=== PATIENT | female | born 1945 ===

== ENCOUNTER 2016-10-03 17:24 | Inpatient (IN) | payer MEDICARE, OTHER ==
--- NOTE | 2016-10-03 17:40 | CP.PCM.PN ---
Subjective - Date & Time of Evaluation Date of Evaluation: 10/03/16 Time of Evaluation: 17:38 - Subjective Subjective: CODE HEART: Patient presents to ED via EMS from her doctor, Dr. Green's office. 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 Patient did not take any medication for the pain. Patient went to her doctor today who did an EKG and called EMS. EMS EKG showed ST elevations in II, III, and AVF. Pt given aspirin and nitro in the field. Patient with PMHx HTN but not on meds. PSHx only positive for tonsillectomy. Patient given heparin, billinta in the ED. HR 104, 145/ 80, O2 sat 100%. Objective - Vital Signs/Intake and Output Vital Signs (last 24 hours): Temp Pulse Resp BP Pulse Ox 97.8 F 97 H 16 120/60 96 10/03/16 17:33 10/03/16 17:33 10/03/16 17:33 10/03/16 17:33 10/03/16 17:33
[2016-10-03] MEDS ORDERED: Phenylephrine 10 mg/ml Inj ONE (17:41)
[2016-10-03] MEDS ORDERED: Sodium Chloride 0.9% 500 ML IV ONE (17:41)
[2016-10-03] MEDS ORDERED: Iodixanol 320 MG/ML 200 ML BOTTLE IV ONE (17:42)
[2016-10-03 17:45] LABS: BASO # 0.1 K/uL (0.0-0.2); BASO % 0.4 % (0.0-2.0); EOS # 0.1 K/uL (0.0-0.7); EOS % 0.3 % (0.0-4.0); HEMATOCRIT 41.2 % (34.0-47.0); LYMPH # 2.3 K/uL (1.0-4.3); LYMPH % 14.5 % (20.0-40.0); MEAN CELL VOLUME 89.2 fL (81.0-99.0); MEAN CORPUSCULAR HEMOGLOBIN 29.8 pg (27.0-31.0); MEAN CORPUSCULAR HGB CONC 33.4 g/dL (33.0-37.0); MEAN PLATELET VOLUME 8.6 fL (7.2-11.7); MONO # 0.8 K/uL (0.0-0.8); MONO % 4.8 % (0.0-10.0); WHITE BLOOD COUNT 15.6 K/uL (4.8-10.8)
[2016-10-03] MEDS ORDERED: Heparin25000 units/250ml 1/2NS 25,000 UNITS/250 ML BAG IV STA (17:45)
--- NOTE | 2016-10-03 17:48 | C.PDOC ---
History Of Present Illness 71 yr old female brought in via BLS from the doctors office, presents to the ER with complaints of chest pain. Patient states she had chest tightness intermittently for the past 2 days. Patient is awake and alert, EMS report patient was given 2 Nitro and Aspirin in field. Reports of headache. Denies fever, nausea, vomiting, weakness or numbness. 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 Constitutional: Negative for: Fever Cardiovascular: Positive for: Chest Pain Gastrointestinal: Negative for: Nausea, Vomiting Neurological: Negative for: Weakness, Numbness Physical Exam - Physical Exam Appears: Non-toxic, No Acute Distress Skin: Warm, Dry, No Rash Head: Atraumatic, Normacephalic Neck: Supple Chest: Symmetrical, No Tenderness Cardiovascular: Rhythm Regular, No Murmur Respiratory: Normal Breath Sounds, No Rales, No Rhonchi, No Wheezing Gastrointestinal/Abdominal: Soft, No Tenderness Extremity: Normal ROM, Pedal Edema (trace) Neurological/Psych: Oriented x3, Normal Speech, Normal Cognition ED Course And Treatment - Laboratory Results Result Diagrams: 10/03/16 17:39 10/03/16 17:39 ECG: Interpreted By Me ECG Rhythm: Sinus Rhythm ECG Interpretation: Abnormal Interpretation Of ECG: Sinus ST elevation 2,3,f, Rate From EC O2 Sat by Pulse Oximetry: 100 Pulse Ox Interpretation: Normal Medical Decision Making Medical Decision Making: PLAN: * Code heart * EKG * CBC * CMP * already got asa * Brilinta PO * Heparin IV * pathology lab technician NOTE: * 17:18 - EKG came through [facility]. * 17:25 - Code Heart was called. * 17:26 - Patient arrived to ED. 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 Disposition - Disposition Disposition: HOME/ ROUTINE Disposition Time: 17:30 Condition: CRITICAL - Clinical Impression Clinical Impression: STEMI (ST elevation myocardial infarction) - Scribe Statement The provider has reviewed the documentation as recorded by the Alejandro Schmidt Provider Attestation: All medical record entries made by the Alejandro were at my direction and personally dictated by me. I have reviewed the chart and agree that the record accurately reflects my personal performance of the history, physical exam, medical decision making, and the department course for this patient. I have also personally directed, reviewed, and agree with the discharge instructions and disposition.
[2016-10-03 17:53] LABS: CHLORIDE 102 mmol/L (98-107); POTASSIUM 3.9 mmol/L (3.6-5.2); SODIUM 136 mmol/L (132-148)
[2016-10-03 17:55] LABS: BILIRUBIN,TOTAL 0.6 mg/dL (0.2-1.3); CARBON DIOXIDE 23 mmol/L (22-30); CHOLESTEROL 291 mg/dL (0-199); GFR AFRICAN-AMERICAN > 60; TOTAL PROTEIN 7.3 g/dL (6.3-8.3)
[2016-10-03 17:56] LABS: ALB/GLOB RATIO 1.3 (1.0-2.1); ALKALINE PHOSPHATASE 96 U/L (38-126); ALT/SGPT 22 U/L (9-52); AST/SGOT 31 U/L (14-36); BLOOD UREA NITROGEN 12 mg/dL (7-17); CALCIUM 9.3 mg/dl (8.6-10.4); GLUCOSE,RANDOM 132 mg/dL (65-105); INR 0.9
[2016-10-03] MEDS ORDERED: Midazolam 2 MG/2 ML VIAL ONE (18:00)
--- NOTE | 2016-10-03 18:50 | CP.PCM.CON ---
History of Present Illness - History of Present Illness History of Present Illness: I was asked for consultation by galindo Martinez. Patient is a 71 year old female with PMH HTN, DM who presents with chest pain. The patient states she has develoepd progressive chest pressure and dyspnea. She went to her primary medical doctor's office and was found to have anabnormal KEG. She was brought in by ambulance with an inferior eall myocardial infarction. The patient has persistent chest pain. Review of Systems - Constitutional Constitutional: absent: As Per HPI, Anorexia, Chills, Daytime Sleepiness, Excessive Sweating, Fatigue, Fever, Frequent Falls, Headache, Increased Appetite , Lethargy, Malaise, Night Sweats, Snoring, Sleep Apnea, Weight Gain, Weight Loss, Weakness, Other - EENT Eyes: absent: As Per HPI, Blind Spots, Blurred Vision, Change in Vision, Decreased Night Vision, Diplopia, Discharge, Dry Eye, Exophthalmos, Floaters, Irritation, Itchy Eyes, Loss of Peripheral Vision, Pain, Photophobia, Requires Corrective Lenses, Sees Flashes, Spots in Vision, Tunnel Vision, Other Visual Disturbances, Loss of Vision, Other Ears: absent: As Per HPI, Decreased Hearing, Ear Discharge, Ear Pain, Tinnitus, Abnormal Hearing, Disequilibrium, Dizziness, Other Nose/Mouth/Throat: absent: As Per HPI, Epistaxis, Nasal Congestion, Nasal Discharge, Nasal Obstruction, Nasal Trauma, Nose Pain, Post Nasal Drip, Sinus Pain, Sinus Pressure, Bleeding Gums, Change in Voice, Dental Pain, Dry Mouth, Dysphagia, Halitosis, Hoarsness, Lip Swelling, Mouth Lesions, Mouth Pain, Odynophagia, Sore Throat, Throat Swelling, Tongue Swelling, Facial Pain, Neck Pain, Neck Mass, Other - Cardiovascular Cardiovascular: Chest Pain at Rest, Dyspnea - Respiratory Respiratory: Dyspnea - Gastrointestinal Gastrointestinal: absent: As Per HPI, Abdominal Pain, Belching, Bloating, Change in Bowel Habits, Change in Stool Character, Coffee Ground Emesis, Constipation, Cramping, Diarrhea, Dyspepsia, Dysphagia, Early Satiety, Excessive Flatus, Fecal Incontinence, Heartburn, Hematemesis, Hematochezia, Loose Stools, Melena, Nausea, Odynophagia, Temesmus, Vomiting, Other - Genitourinary Genitourinary: absent: As Per HPI, Change in Urinary Stream, Difficulty Urinating, Dysuria, Flank Pain, Hematuria, Pyuria, Nocturia, Urinary Incontinence, Urinary Frequency, Urinary Hesitance, Urinary Urgency, Voiding Freq/Small Amts, Freq UTI, Hx Renal/Bladder Calculi, Hx /Renal Surgery, Bladder Distension, Other - Musculoskeletal Musculoskeletal: absent: As Per HPI, Abnormal Gait, Arthralgias, Atrophy, Back Pain, Deformity, Joint Swelling, Limited Range of Motion, Loss of Height, Muscle Cramps, Muscle Weakness, Myalgias, Neck Pain, Numbness, Radiating Pain into Limb, Stiffness, Tingling, Other - Integumentary Integumentary: absent: As Per HPI, Acne, Alopecia, Bleeding Lesions, Change in Hair, Change in Nails, Change in Pigmentation, Changing Lesions, Dry Skin, Erythema, Furuncle, Hirsutism, Lesions, New Lesions, Non-Healing Lesions, Photosensitivity, Pruritus, Rash, Skin Pain, Skin Ulcer, Sores, Striae, Swelling , Unusual Bruising, Wounds, Jaundice, Other - Neurological Neurological: absent: As Per HPI, Abnormal Gait, Abnormal Hearing, Abnormal Movements, Abnormal Speech, Behavioral Changes, Burning Sensations, Confusion, Convulsions, Disequilibrium, Dizziness, Numbness, Focal Weakness, Frequent Falls , Headaches, Lack of Coordination, Loss of Vision, Memory Loss, Paresthesias, Radicular Pain, Restless Legs, Sensory Deficit, Syncope, Tingling, Tremor, Vertigo, Weakness, Other Visual Disturbances, Other - Psychiatric Psychiatric: absent: As Per HPI, Abnormal Sleep Pattern, Anhedonia, Anxiety, Auditory Hallucinations, Behavioral Changes, Change in Appetite, Change in Libido, Confusion, Depression, Difficulty Concentrating, Hallucinations, Homicidal Ideation, Hopelessness, Irritability, Memory Loss, Mood Swings, Panic Attacks, Paranoia, Suicidal Ideation, Visual Hallucinations, Tactile Hallucinations, Other - Endocrine Endocrine: absent: As Per HPI, Change in Body Appearance, Change in Libido, Cold Intolorance, Deepening of Voice, Excessive Sweating, Fatigue, Flushing, Heat Intolorance, Increase in Ring/Shoe/Hat Size, Palpitations, Polydipsia, Polyphagia, Polyuria, Other - Hematologic/Lymphatic Hematologic: absent: As Per HPI, Easy Bleeding, Easy Bruising, Lymphadenopathy, Other Past Patient History - Past Social History Smoking Status: Never Smoked - CARDIAC Hx Hypertension: Yes - PSYCHIATRIC Hx Substance Use: No - SURGICAL HISTORY Hx Tonsillectomy: Yes - ANESTHESIA Hx Anesthesia: No Hx Anesthesia Reactions: No Meds Allergies/Adverse Reactions: Allergies Allergy/AdvReac Type Severity Reaction Status Date / Time No Known Allergies Allergy Unverified 10/03/16 17:33 - Medications Medications: Current Medications Heparin Sodium/Sodium Chloride (Heparin 76129 Units/250ml 1/2 Normal Saline) 25 ,000 units in 250 mls @ 10 mls/hr IV STAT STA Stop: 10/04/16 18:44 Physical Exam - Constitutional Appears: Toxic - Head Exam Head Exam: NORMAL INSPECTION - Eye Exam Eye Exam: Normal appearance - ENT Exam ENT Exam: Mucous Membranes Moist - Neck Exam Neck exam: Positive for: Full Rom - Respiratory Exam Respiratory Exam: Decreased Breath Sounds - Cardiovascular Exam Cardiovascular Exam: REGULAR RHYTHM - GI/Abdominal Exam GI & Abdominal Exam: Normal Bowel Sounds - Rectal Exam Rectal Exam: Deferred - Extremities Exam Extremities exam: Positive for: pedal edema - Back Exam Back exam: NORMAL INSPECTION - Neurological Exam Neurological exam: Alert, Oriented x3 - Psychiatric Exam Psychiatric exam: Normal Affect - Skin Skin Exam: Normal Color Results - Vital Signs Recent Vital Signs: Last Vital Signs Temp 97.8 F 10/03/16 17:33 Pulse 74 10/03/16 17:42 Resp 16 10/03/16 17:35 BP 100/55 L 10/03/16 17:42 Pulse Ox 100 10/03/16 18:13 - Labs Result Diagrams: 10/04/16 06:26 10/04/16 06:24 - EKG Data EKG Interpreted by: Myself EKG shows normal: Sinus rhythm - EKG Data Interpretation: Acute Ischemia Assessment & Plan (1) STEMI (ST elevation myocardial infarction) Assessment and Plan: constantino has been loaded with Briinta, asa, heparin. patient requires immediate cardiac catheterization. the risks an benefits have been explained in detail. Status: Acute (2) HTN (hypertension) Assessment and Plan: blood pressure control Status: Acute (3) Hypercholesterolemia Assessment and Plan: check lipid profile Status: Acute (4) Non-insulin dependent type 2 diabetes mellitus Assessment and Plan: glucose control Status: Acute
--- NOTE | 2016-10-03 18:54 | CP.PCM.PN ---
Subjective - Date & Time of Evaluation Date of Evaluation: 10/03/16 Time of Evaluation: 18:50 - Subjective Subjective: cardiac cath performed for acute IWMI. RCA 99% mid (BARRIE 1 flow) culprit vessel Xience 2.75 x 18 and 2.75 x 12 ANDERSON mid RCA LVEF 50%. Plan: admit to ICU. ASA 81 mg daily, Brilinta 90 mg BID. stain therapy. echocardiogram in am Objective - Vital Signs/Intake and Output Vital Signs (last 24 hours): Temp Pulse Resp BP Pulse Ox 97.8 F 74 16 100/55 L 100 10/03/16 17:33 10/03/16 17:42 10/03/16 17:35 10/03/16 17:42 10/03/16 18:13 - Medications Medications: Current Medications Heparin Sodium/Sodium Chloride (Heparin 55258 Units/250ml 1/2 Normal Saline) 25 ,000 units in 250 mls @ 10 mls/hr IV STAT STA Stop: 10/04/16 18:44 - Labs Labs: PT 10.5 SECONDS (9.7-12.2) 10/03/16 17:39 INR 0.9 10/03/16 17:39 APTT 40 SECONDS (21-34) H 10/03/16 17:39
[2016-10-03] MEDS ORDERED: Sodium Chloride 0.9% 1,000 ML IV SCH (19:00)
[2016-10-03 19:58] LABS: CHLORIDE 102 mmol/L (98-107)
[2016-10-03 19:59] LABS: POTASSIUM 4.5 mmol/L (3.6-5.2); SODIUM 136 mmol/L (132-148)
[2016-10-03 20:01] LABS: ALB/GLOB RATIO 1.3 (1.0-2.1); AST/SGOT 101 U/L (14-36); BILIRUBIN,TOTAL 0.6 mg/dL (0.2-1.3); BLOOD UREA NITROGEN 11 mg/dL (7-17); CARBON DIOXIDE 25 mmol/L (22-30); GFR AFRICAN-AMERICAN > 60; TOTAL PROTEIN 6.7 g/dL (6.3-8.3)
[2016-10-03 20:02] LABS: ALKALINE PHOSPHATASE 97 U/L (38-126); ALT/SGPT 33 U/L (9-52); CALCIUM 8.9 mg/dl (8.6-10.4); GLUCOSE,RANDOM 115 mg/dL (65-105)
--- NOTE | 2016-10-03 20:58 | CP.PCM.CON ---
History of Present Illness - History of Present Illness History of Present Illness: 71 F with h/o htn, not currently on meds, h/o tobacco use about 5-6 cig/day was sent from pmd's for c/o intermittent chest pressure for last 1 wk with ekg showing inferior STEMI. Pressure had been related with her physical activities. Patient came in ER as code heart, cath done by Dr. Villalpando 2 stents in mid RCA , EF 50% and sent in post cath for monitor in ICU. Patient currently denies any symptoms, or distress, is pleasant and maintaining vitals. PMH as above PSH tonsillectomy Allergies NKDA Meds none currently Family history mother still living, father at age of 82 Social lives with mother and takes care of her, smoking as above, denies alcohol or illicit drugs. Review of Systems - Review of Systems All systems: reviewed and no additional remarkable complaints except (HPI) Past Patient History - Past Social History Smoking Status: Light Smoker < 10 Cigarettes Daily Alcohol: None Drugs: Denies Home Situation {Lives}: With Family Domestic Violence: Negative - CARDIAC Hx Hypertension: Yes - PSYCHIATRIC Hx Substance Use: No - SURGICAL HISTORY Hx Tonsillectomy: Yes - ANESTHESIA Hx Anesthesia: No Hx Anesthesia Reactions: No Meds Allergies/Adverse Reactions: Allergies Allergy/AdvReac Type Severity Reaction Status Date / Time No Known Allergies Allergy Unverified 10/03/16 17:33 - Medications Medications: Current Medications Aspirin (Aspirin Chewable) 81 mg PO DAILY [facility] Sodium Chloride (Sodium Chloride 0.9%) 1,000 mls @ 100 mls/hr IV .Q10H ADRIANA Stop: 10/03/16 23:59 Last Admin: 10/03/16 20:01 Dose: 100 mls/hr Pantoprazole Sodium (Protonix Ec Tab) 40 mg PO DAILY ADRIANA Rosuvastatin Calcium (Crestor) 10 mg PO HS ADRIANA Ticagrelor (Brilinta) 90 mg PO BID ADRIANA Physical Exam - Additional Findings Additional findings: * HEENT KATHIE * Neck Supple * Chest Clear * CVS regular, no murmur, gallop or rub * PA soft, nt, bs present, cath site in right groin no ecchymosis, no swelling, no tenderness, * Ext no edema, b/l pedal pulses present * 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 no fnd * Skin normal turgor Results - Vital Signs Recent Vital Signs: Last Vital Signs Temp 97.8 F 10/03/16 19:10 Pulse 80 10/03/16 19:27 Resp 15 10/03/16 19:27 BP 148/84 10/03/16 19:27 Pulse Ox 100 10/03/16 18:13 - Labs Result Diagrams: 10/03/16 17:39 10/03/16 19:46 Labs: Laboratory Results - last 24 hr 10/03/16 19:46 Sodium 136 Potassium 4.5 Chloride 102 Carbon Dioxide 25 Anion Gap 13 BUN 11 Creatinine 0.7 Est GFR ( Amer) > 60 Est GFR (Non-Af Amer) > 60 Random Glucose 115 H Calcium 8.9 Total Bilirubin 0.6 AST 101 H D ALT 33 Alkaline Phosphatase 97 Troponin I 20.2000 H* Total Protein 6.7 Albumin 3.7 Globulin 2.9 Albumin/Globulin Ratio 1.3 Assessment & Plan - Assessment and Plan (Free Text) Assessment: * Inferior STEMI, s/p 2 stents in RCA * H/o HTN * Tobacco abuse Plan: * Monitor in Icu * Cardioprotective meds started on brillinta, asa, statin, betablocker as tolerated by vitals * Echo * Spoke to Dr. Susanna Han will admit under his service * See orders for detail.
[2016-10-03] MEDS ORDERED: Influenza Virus Vaccine 45 mcg/0.5 ml Syr IM ONE (21:52)
[2016-10-03] MEDS ORDERED: Pneumococcal 23-Valent Vaccine IM ONE (21:52)
[2016-10-04 06:40] LABS: BASO % 0.2 % (0.0-2.0); EOS % 0.3 % (0.0-4.0); HEMATOCRIT 36.3 % (34.0-47.0); LYMPH # 1.7 K/uL (1.0-4.3); LYMPH % 17.2 % (20.0-40.0); MEAN CELL VOLUME 89.2 fL (81.0-99.0); MEAN CORPUSCULAR HEMOGLOBIN 30.2 pg (27.0-31.0); MEAN CORPUSCULAR HGB CONC 33.8 g/dL (33.0-37.0); MEAN PLATELET VOLUME 8.6 fL (7.2-11.7); MONO # 0.7 K/uL (0.0-0.8); MONO % 7.1 % (0.0-10.0); RED CELL DISTRIBUTION WIDTH 14.2 % (11.5-14.5); WHITE BLOOD COUNT 10.1 K/uL (4.8-10.8)
[2016-10-04 06:43] LABS: CHLORIDE 104 mmol/L (98-107); POTASSIUM 3.7 mmol/L (3.6-5.2); SODIUM 135 mmol/L (132-148)
[2016-10-04 06:45] LABS: ALB/GLOB RATIO 1.1 (1.0-2.1); AST/SGOT 219 U/L (14-36); BILIRUBIN,TOTAL 0.6 mg/dL (0.2-1.3); BLOOD UREA NITROGEN 9 mg/dL (7-17); CARBON DIOXIDE 22 mmol/L (22-30); CHOLESTEROL 221 mg/dL (0-199); GFR AFRICAN-AMERICAN > 60; TOTAL PROTEIN 6.1 g/dL (6.3-8.3)
[2016-10-04 06:46] LABS: ALKALINE PHOSPHATASE 81 U/L (38-126); ALT/SGPT 48 U/L (9-52); CALCIUM 8.3 mg/dl (8.6-10.4); GLUCOSE,RANDOM 117 mg/dL (65-105); MAGNESIUM 1.8 mg/dL (1.6-2.3); PHOSPHOROUS 3.5 mg/dL (2.5-4.5)
[2016-10-04] MEDS: Pantoprazole 40 mg EC Tab PO SCH (09:49)
[2016-10-04] MEDS: Metoprolol Succinate 25 mg XL Tab PO SCH (09:50)
--- NOTE | 2016-10-04 13:13 | CP.PCM.PN ---
Subjective - Date & Time of Evaluation Date of Evaluation: 10/04/16 Time of Evaluation: 09:00 - Subjective Subjective: Patient seen and examined in the intensive care unit. Case discussed with STAFF in the morning rounds. Inferior ST elevation AR status post stents placement in RCA Denies chest pain, denies cough, denies fever or chills Objective - Vital Signs/Intake and Output Vital Signs (last 24 hours): Temp Pulse Resp BP Pulse Ox 97.9 F 86 22 143/66 98 10/04/16 08:00 10/04/16 11:00 10/04/16 11:00 10/04/16 11:00 10/04/16 11:00 Intake and Output: 10/04/16 10/04/16 06:59 18:59 Intake Total 1670 700 Output Total 700 400 Balance 970 300 - Medications Medications: Current Medications Aspirin (Aspirin Chewable) 81 mg PO DAILY [facility] Last Admin: 10/04/16 09:49 Dose: 81 mg Metoprolol Succinate (Toprol Xl) 25 mg PO DAILY [facility] Last Admin: 10/04/16 09:50 Dose: 25 mg Pantoprazole Sodium (Protonix Ec Tab) 40 mg PO DAILY [facility] Last Admin: 10/04/16 09:49 Dose: 40 mg Pneumococcal Polyvalent Vaccine (Pneumovax 23 Vaccine) 0.5 ml IM .ONCE ONE Stop: 10/05/16 10:01 Rosuvastatin Calcium (Crestor) [address] [facility] Ticagrelor (Brilinta) 90 mg PO BID [facility] Last Admin: 10/04/16 09:49 Dose: 90 mg - Labs Labs: 10/04/16 06:26 10/04/16 06:24 PT 10.5 SECONDS (9.7-12.2) 10/03/16 17:39 INR 0.9 10/03/16 17:39 APTT 40 SECONDS (21-34) H 10/03/16 17:39 - Head Exam Head Exam: ATRAUMATIC, NORMOCEPHALIC - Eye Exam Eye Exam: Normal appearance - ENT Exam ENT Exam: Mucous Membranes Moist - Neck Exam Neck Exam: Full ROM, Normal Inspection - Respiratory Exam Respiratory Exam: Clear to Ausculation Bilateral - Cardiovascular Exam Cardiovascular Exam: REGULAR RHYTHM - GI/Abdominal Exam GI & Abdominal Exam: Soft, Normal Bowel Sounds - Extremities Exam Extremities Exam: Normal Inspection - Neurological Exam Neurological Exam: Alert Assessment and Plan (1) STEMI (ST elevation myocardial infarction) Assessment & Plan: Status post stent placement in RCA Continue brilinta, aspirin and started on beta blockers Echocardiogram Transfer patient to telemetry Case discussed with cardiology Status: Acute (2) HTN (hypertension) Status: Acute
--- NOTE | 2016-10-04 18:24 | CP.PCM.PN ---
Subjective - Date & Time of Evaluation Date of Evaluation: 10/04/16 Time of Evaluation: 09:00 - Subjective Subjective: Pt seen and examined in ICU s/p cardiac cath performed for acute IWMI. RCA 99% mid (BARRIE 1 flow) culprit vessel Xience 2.75 x 18 and 2.75 x 12 ANDERSON mid RCA LVEF 50%. ASA 81 mg daily, Brilinta 90 mg BID. stain therapy. echocardiogram pending Objective - Vital Signs/Intake and Output Vital Signs (last 24 hours): Temp Pulse Resp BP Pulse Ox 98.3 F 89 24 148/57 L 100 10/04/16 16:00 10/04/16 16:08 10/04/16 16:08 10/04/16 16:08 10/04/16 16:08 Intake and Output: 10/04/16 10/04/16 06:59 18:59 Intake Total 1670 1180 Output Total 700 1300 Balance 970 -120 - Medications Medications: Current Medications Aspirin (Aspirin Chewable) 81 mg PO DAILY [facility] Last Admin: 10/04/16 09:49 Dose: 81 mg Metoprolol Succinate (Toprol Xl) 25 mg PO DAILY [facility] Last Admin: 10/04/16 09:50 Dose: 25 mg Pantoprazole Sodium (Protonix Ec Tab) 40 mg PO DAILY [facility] Last Admin: 10/04/16 09:49 Dose: 40 mg Pneumococcal Polyvalent Vaccine (Pneumovax 23 Vaccine) 0.5 ml IM .ONCE ONE Stop: 10/05/16 10:01 Rosuvastatin Calcium (Crestor) 10 mg PO [facility] Ticagrelor (Brilinta) 90 mg PO BID [facility] Last Admin: 10/04/16 18:16 Dose: 90 mg - Labs Labs: 10/04/16 06:26 10/04/16 06:24 PT 10.5 SECONDS (9.7-12.2) 10/03/16 17:39 INR 0.9 10/03/16 17:39 APTT 40 SECONDS (21-34) H 10/03/16 17:39 - Constitutional Appears: No Acute Distress - Head Exam Head Exam: ATRAUMATIC, NORMAL INSPECTION, NORMOCEPHALIC - Eye Exam Eye Exam: EOMI, Normal appearance, PERRL Pupil Exam: NORMAL ACCOMODATION, PERRL - Respiratory Exam Respiratory Exam: Clear to Ausculation Bilateral, NORMAL BREATHING PATTERN - Cardiovascular Exam Cardiovascular Exam: REGULAR RHYTHM, +S1, +S2. absent: Murmur - GI/Abdominal Exam GI & Abdominal Exam: Soft, Normal Bowel Sounds. absent: Tenderness Assessment and Plan (1) HTN (hypertension) Status: Acute (2) Hypercholesterolemia Status: Acute (3) Non-insulin dependent type 2 diabetes mellitus Status: Acute (4) STEMI (ST elevation myocardial infarction) Assessment & Plan: s/p cardiac cath ICU monitoring Status: Acute
--- NOTE | 2016-10-04 18:24 | CP.PCM.HP ---
History of Present Illness - History of Present Illness History of Present Illness: Patient is a 71 year old female with PMH HTN, DM who presents with chest pain. The patient states she has develoepd progressive chest pressure and dyspnea. She went to her primary medical doctor's office and was found to have anabnormal KEG. She was brought in by ambulance with an inferior eall myocardial infarction. The patient has persistent chest pain. Present on Admission - Present on Admission Any Indicators Present on Admission: Yes Review of Systems - Review of Systems Systems not reviewed;Unavailable: Acuity of Condition - Constitutional Constitutional: Fatigue, Lethargy, Malaise - EENT Eyes: absent: As Per HPI, Blind Spots, Blurred Vision, Change in Vision, Decreased Night Vision, Diplopia, Discharge, Dry Eye, Exophthalmos, Floaters, Irritation, Itchy Eyes, Loss of Peripheral Vision, Pain, Photophobia, Requires Corrective Lenses, Sees Flashes, Spots in Vision, Tunnel Vision, Other Visual Disturbances, Loss of Vision, Other - Cardiovascular Cardiovascular: Chest Pain, Diaphoresis, Dyspnea - Respiratory Respiratory: absent: As Per HPI, Cough, Dyspnea, Hemoptysis, Dyspnea on Exertion , Wheezing, Snoring, Stridor, Pain on Inspiration, Chest Congestion, Excessive Mucous Production, Change in Mucous Color, Pain with Coughing, Other - Musculoskeletal Musculoskeletal: absent: As Per HPI, Abnormal Gait, Arthralgias, Atrophy, Back Pain, Deformity, Joint Swelling, Limited Range of Motion, Loss of Height, Muscle Cramps, Muscle Weakness, Myalgias, Neck Pain, Numbness, Radiating Pain into Limb, Stiffness, Tingling, Other - Integumentary Integumentary: absent: As Per HPI, Acne, Alopecia, Bleeding Lesions, Change in Hair, Change in Nails, Change in Pigmentation, Changing Lesions, Dry Skin, Erythema, Furuncle, Hirsutism, Lesions, New Lesions, Non-Healing Lesions, Photosensitivity, Pruritus, Rash, Skin Pain, Skin Ulcer, Sores, Striae, Swelling , Unusual Bruising, Wounds, Jaundice, Other Past Patient History - Past Social History Smoking Status: Never Smoked - CARDIAC Hx Hypertension: Yes - MUSCULOSKELETAL/RHEUMATOLOGICAL Hx Falls: Yes - PSYCHIATRIC Hx Substance Use: No - SURGICAL HISTORY Hx Tonsillectomy: Yes - ANESTHESIA Hx Anesthesia: No Hx Anesthesia Reactions: No Meds Home Medications: Home Medication List Medication Instructions Recorded Confirmed Type Aspirin [Adult Low Dose Aspirin EC] 81 mg PO QID #100 tablet. 10/05/16 Rx Metoprolol Succinate [Toprol XL] 25 mg PO DAILY #90 tab 10/05/16 Rx Rosuvastatin Calcium [Crestor] 10 mg PO HS #30 tab 10/05/16 Rx Ticagrelor [Brilinta] 90 mg PO BID #60 tab 10/05/16 Rx Allergies/Adverse Reactions: Allergies Allergy/AdvReac Type Severity Reaction Status Date / Time No Known Allergies Allergy Unverified 10/03/16 17:33 Physical Exam - Constitutional Appears: No Acute Distress - Eye Exam Eye Exam: EOMI, Normal appearance, PERRL Pupil Exam: NORMAL ACCOMODATION, PERRL - Respiratory Exam Respiratory Exam: Clear to Auscultation Bilateral, NORMAL BREATHING PATTERN - Cardiovascular Exam Cardiovascular Exam: REGULAR RHYTHM - GI/Abdominal Exam GI & Abdominal Exam: Normal Bowel Sounds, Soft. absent: Tenderness Results - Vital Signs Recent Vital Signs: Last Vital Signs Temp 98.3 F 10/04/16 16:00 Pulse 89 10/04/16 16:08 Resp 24 10/04/16 16:08 BP 148/57 L 10/04/16 16:08 Pulse Ox 100 10/04/16 16:08 - Labs Result Diagrams: 10/05/16 07:06 10/05/16 07:06 Labs: Laboratory Results - last 24 hr 10/03/16 10/04/16 10/04/16 19:46 06:24 06:26 WBC 10.1 RBC 4.06 Hgb 12.3 Hct 36.3 MCV 89.2 MCH 30.2 MCHC 33.8 RDW 14.2 Plt Count 242 MPV 8.6 Neut % (Auto) 75.2 H Lymph % (Auto) 17.2 L [place] % (Auto) 7.1 Eos % (Auto) 0.3 Baso % (Auto) 0.2 Neut # 7.6 H Lymph # 1.7 Leon # 0.7 Eos # 0.0 Baso # 0.0 Sodium 136 135 Potassium 4.5 3.7 Chloride 102 104 Carbon Dioxide 25 22 Anion Gap 13 12 BUN 11 9 Creatinine 0.7 0.6 L Est GFR ( Amer) > 60 > 60 Est GFR (Non-Af Amer) > 60 > 60 Random Glucose 115 H 117 H Calcium 8.9 8.3 L Phosphorus 3.5 Magnesium 1.8 Total Bilirubin 0.6 0.6 AST 101 H D 219 H D ALT 33 48 Alkaline Phosphatase 97 81 Total Creatine Kinase 1179 H CK-MB (Mass) 91.0 H Troponin I 20.2000 H* Troponin I, Quant 56.6000 H* Total Protein 6.7 6.1 L Albumin 3.7 3.2 L Globulin 2.9 2.9 Albumin/Globulin Ratio 1.3 1.1 Triglycerides 98 D Cholesterol 221 H LDL Cholesterol Direct 182 H HDL Cholesterol 37 Assessment & Plan (1) HTN (hypertension) Status: Acute (2) Hypercholesterolemia Status: Acute (3) Non-insulin dependent type 2 diabetes mellitus Status: Acute (4) STEMI (ST elevation myocardial infarction) Status: Acute
--- NOTE | 2016-10-04 20:02 | CARD ---
APPROVED REPORT EXAM: Two-dimensional and M-mode echocardiogram with Doppler and color Doppler. Other Information Quality : GoodRhythm : NSR INDICATION STEMI, IWMI RISK FACTORS Hypertension Hyperlipidemia Diabetes M-Mode DIMENSIONS RVDd1.32 (2.1-3.2cm)Left Atrium (MM)3.36 (2.5-4.0cm) IVSd1.25 (0.7-1.1cm)Aortic Root2.47 (2.2-3.7cm) LVDd4.30 (4.0-5.6cm)Aortic Cusp Exc.1.59 (1.5-2.0cm) PWd1.21 (0.7-1.1cm)FS (%) 25 % LVDs3.23 (2.0-3.8cm)LVEF (%)50 (>50%) Aortic Valve AoV Peak Gndotzwf936.4cm/Trey Peak GR.8mmHg Mitral Valve MV E Wnqcodcy86.3cm/sMV A Jickapla976.0cm/sE/A ratio0.9 TDI E/Lateral E'0.0E/Medial E'0.0 Tricuspid Valve TR Peak Nhnuvdum310vm/sTR Peak Gr.[id number] LEFT VENTRICLE The left ventricle is normal size. There is mild concentric left ventricular hypertrophy. Left ventricle is borderline. Septal hypokinesis Transmitral Doppler flow pattern is Grade I-abnormal relaxation pattern. RIGHT VENTRICLE The right ventricle is normal size. There is normal right ventricular wall thickness. RV Systolic function is mildly reduced. ATRIA The left atrium size is normal. The right atrium size is normal. AORTIC VALVE The aortic valve is not well visualized. MITRAL VALVE The mitral valve is moderately thickened, a vegitation can be ruled out, clinical correlation is suggested TRICUSPID VALVE The tricuspid valve is normal in structure. GREAT VESSELS The aortic root is normal in size. The IVC is normal in size and collapses >50% with inspiration. PERICARDIAL EFFUSION There is a trace loculated anterior pericardial effusion. <Conclusion> The left ventricle is normal size. There is mild concentric left ventricular hypertrophy. Left ventricle is borderline. Septal hypokinesis Transmitral Doppler flow pattern is Grade I-abnormal relaxation pattern. The mitral valve is moderately thickened, a vegitation can be ruled out, clinical correlation is suggested
[2016-10-05 01:23] VITALS: RESP 20
[2016-10-05 07:36] LABS: BASO % 0.4 % (0.0-2.0); EOS # 0.1 K/uL (0.0-0.7); EOS % 1.4 % (0.0-4.0); LYMPH # 2.5 K/uL (1.0-4.3); LYMPH % 28.6 % (20.0-40.0); MEAN CELL VOLUME 89.8 fL (81.0-99.0); MEAN CORPUSCULAR HGB CONC 33.4 g/dL (33.0-37.0); MEAN PLATELET VOLUME 8.9 fL (7.2-11.7); MONO # 0.7 K/uL (0.0-0.8); MONO % 7.6 % (0.0-10.0); RED CELL DISTRIBUTION WIDTH 14.3 % (11.5-14.5); WHITE BLOOD COUNT 8.9 K/uL (4.8-10.8)
[2016-10-05 07:47] LABS: CHLORIDE 106 mmol/L (98-107); POTASSIUM 4.1 mmol/L (3.6-5.2); SODIUM 138 mmol/L (132-148)
[2016-10-05 07:49] LABS: AST/SGOT 91 U/L (14-36); BILIRUBIN,TOTAL 0.6 mg/dL (0.2-1.3); CARBON DIOXIDE 26 mmol/L (22-30); GFR AFRICAN-AMERICAN > 60
[2016-10-05 07:50] LABS: ALB/GLOB RATIO 1.2 (1.0-2.1); ALKALINE PHOSPHATASE 75 U/L (38-126); ALT/SGPT 35 U/L (9-52); BLOOD UREA NITROGEN 10 mg/dL (7-17); CALCIUM 8.7 mg/dl (8.6-10.4); GLUCOSE,RANDOM 111 mg/dL (65-105); PHOSPHOROUS 3.3 mg/dL (2.5-4.5); TOTAL PROTEIN 6.2 g/dL (6.3-8.3)
[2016-10-05] MEDS: Metoprolol Succinate 25 mg XL Tab PO SCH (09:27)
[2016-10-05] MEDS: Pantoprazole 40 mg EC Tab PO SCH (09:28)
--- NOTE | 2016-10-05 09:28 | CP.PCM.PN ---
Subjective - Date & Time of Evaluation Date of Evaluation: 10/04/16 Time of Evaluation: 12:30 - Subjective Subjective: patient seen in ICU. sitting in chair. no chest pain. no dyspnea. Objective - Vital Signs/Intake and Output Vital Signs (last 24 hours): Temp Pulse Resp BP Pulse Ox 97.9 F 98 H 20 116/72 98 10/04/16 23:40 10/04/16 23:40 10/04/16 23:40 10/04/16 23:40 10/04/16 23:40 Intake and Output: 10/05/16 10/05/16 06:59 18:59 Output Total 150 Balance -150 - Medications Medications: Current Medications Aspirin (Aspirin Chewable) 81 mg PO DAILY [facility] Last Admin: 10/04/16 09:49 Dose: 81 mg Metoprolol Succinate (Toprol Xl) 25 mg PO DAILY [facility] Last Admin: 10/04/16 09:50 Dose: 25 mg Pantoprazole Sodium (Protonix Ec Tab) 40 mg PO DAILY [facility] Last Admin: 10/04/16 09:49 Dose: 40 mg Pneumococcal Polyvalent Vaccine (Pneumovax 23 Vaccine) 0.5 ml IM .ONCE ONE Stop: 10/05/16 10:01 Rosuvastatin Calcium (Crestor) 10 mg PO HS [facility] Last Admin: 10/04/16 21:35 Dose: 10 mg Ticagrelor (Brilinta) 90 mg PO BID [facility] Last Admin: 10/04/16 18:16 Dose: 90 mg - Labs Labs: 10/05/16 07:06 10/05/16 07:06 PT 10.5 SECONDS (9.7-12.2) 10/03/16 17:39 INR 0.9 10/03/16 17:39 APTT 40 SECONDS (21-34) H 10/03/16 17:39 - Constitutional Appears: Non-toxic - Head Exam Head Exam: NORMAL INSPECTION - Eye Exam Eye Exam: Normal appearance - ENT Exam ENT Exam: Mucous Membranes Moist - Neck Exam Neck Exam: Full ROM - Respiratory Exam Respiratory Exam: NORMAL BREATHING PATTERN - Cardiovascular Exam Cardiovascular Exam: REGULAR RHYTHM - GI/Abdominal Exam GI & Abdominal Exam: Normal Bowel Sounds - Rectal Exam Rectal Exam: Deferred - Extremities Exam Extremities Exam: Pedal Edema - Back Exam Back Exam: NORMAL INSPECTION - Neurological Exam Neurological Exam: Alert - Psychiatric Exam Psychiatric exam: Normal Affect - Skin Skin Exam: Normal Color Assessment and Plan (1) STEMI (ST elevation myocardial infarction) Assessment & Plan: s/p PCI RCA. continue ASA/Brilinta Status: Acute (2) HTN (hypertension) Assessment & Plan: betablocker therapy Status: Acute (3) Hypercholesterolemia Assessment & Plan: markedly elevated LDL. add continue Crestor Status: Acute (4) Non-insulin dependent type 2 diabetes mellitus Assessment & Plan: glucose control Status: Acute
[2016-10-05] MEDS ORDERED: Pneumococcal 23-Valent Vaccine IM ONE (10:00)
--- NOTE | 2016-10-05 10:54 | CP.PCM.PN ---
Subjective - Date & Time of Evaluation Date of Evaluation: 10/05/16 Time of Evaluation: 10:00 - Subjective Subjective: patient has no chest pain. no dyspnea Objective - Vital Signs/Intake and Output Vital Signs (last 24 hours): Temp Pulse Resp BP Pulse Ox 97.9 F 98 H 20 116/72 98 10/04/16 23:40 10/04/16 23:40 10/04/16 23:40 10/04/16 23:40 10/04/16 23:40 Intake and Output: 10/05/16 10/05/16 06:59 18:59 Output Total 150 Balance -150 - Medications Medications: Current Medications Aspirin (Aspirin Chewable) 81 mg PO DAILY [facility] Last Admin: 10/05/16 09:27 Dose: 81 mg Metoprolol Succinate (Toprol Xl) 25 mg PO DAILY [facility] Last Admin: 10/05/16 09:27 Dose: 25 mg Pantoprazole Sodium (Protonix Ec Tab) 40 mg PO DAILY [facility] Last Admin: 10/05/16 09:28 Dose: 40 mg Rosuvastatin Calcium (Crestor) 10 mg PO HS [facility] Last Admin: 10/04/16 21:35 Dose: 10 mg Ticagrelor (Brilinta) 90 mg PO BID [facility] Last Admin: 10/05/16 09:33 Dose: 90 mg - Labs Labs: 10/05/16 07:06 10/05/16 07:06 PT 10.5 SECONDS (9.7-12.2) 10/03/16 17:39 INR 0.9 10/03/16 17:39 APTT 40 SECONDS (21-34) H 10/03/16 17:39 - Constitutional Appears: Non-toxic - Head Exam Head Exam: NORMAL INSPECTION - Eye Exam Eye Exam: Normal appearance - ENT Exam ENT Exam: Mucous Membranes Moist - Neck Exam Neck Exam: Full ROM - Respiratory Exam Respiratory Exam: NORMAL BREATHING PATTERN - Cardiovascular Exam Cardiovascular Exam: REGULAR RHYTHM - GI/Abdominal Exam GI & Abdominal Exam: Normal Bowel Sounds - Rectal Exam Rectal Exam: Deferred - Extremities Exam Extremities Exam: Pedal Edema - Back Exam Back Exam: NORMAL INSPECTION - Neurological Exam Neurological Exam: Alert - Psychiatric Exam Psychiatric exam: Normal Affect Assessment and Plan (1) STEMI (ST elevation myocardial infarction) Assessment & Plan: continue ASA/Brilinta. stable for discharge Status: Acute (2) HTN (hypertension) Assessment & Plan: blood pressure control Status: Acute (3) Hypercholesterolemia Assessment & Plan: continue statin therapy Status: Acute (4) Non-insulin dependent type 2 diabetes mellitus Assessment & Plan: EF>40%. will attempt NINA inhibitor however patient does not have severe LV dysfunction. Status: Acute
[2016-10-05 15:35] VITALS: BP 154/81; PULSE 99; TEMP 98; O2SAT 96
--- NOTE | 2016-10-05 23:10 | CP.PCM.DIS ---
Provider - Provider Date of Admission: 10/03/16 17:43 Attending physician: Constantin Han MD Time Spent in preparation of Discharge (in minutes): 20 Hospital Course - Lab Results Lab Results: Micro Results 10/03/16 20:00 Nose MRSA Culture (Admit) - Final MRSA NOT DETECTED Most Recent Lab Values WBC 8.9 K/uL (4.8-10.8) 10/05/16 07:06 RBC 4.12 Mil/uL (3.80-5.20) 10/05/16 07:06 Hgb 12.4 g/dL (11.0-16.0) 10/05/16 07:06 Hct 37.0 % (34.0-47.0) 10/05/16 07:06 MCV 89.8 fL (81.0-99.0) 10/05/16 07:06 MCH 30.0 pg (27.0-31.0) 10/05/16 07:06 MCHC 33.4 g/dL (33.0-37.0) 10/05/16 07:06 RDW 14.3 % (11.5-14.5) 10/05/16 07:06 Plt Count 244 K/uL (130-400) 10/05/16 07:06 MPV 8.9 fL (7.2-11.7) 10/05/16 07:06 Neut % (Auto) 62.0 % (50.0-75.0) 10/05/16 07:06 Lymph % (Auto) 28.6 % (20.0-40.0) 10/05/16 07:06 [place] % (Auto) 7.6 % (0.0-10.0) 10/05/16 07:06 Eos % (Auto) 1.4 % (0.0-4.0) 10/05/16 07:06 Baso % (Auto) 0.4 % (0.0-2.0) 10/05/16 07:06 Neut # 5.5 K/uL (1.8-7.0) 10/05/16 07:06 Lymph # 2.5 K/uL (1.0-4.3) 10/05/16 07:06 [place] # 0.7 K/uL (0.0-0.8) 10/05/16 07:06 Eos # 0.1 K/uL (0.0-0.7) 10/05/16 07:06 Baso # 0.0 K/uL (0.0-0.2) 10/05/16 07:06 PT 10.5 SECONDS (9.7-12.2) 10/03/16 17:39 INR 0.9 10/03/16 17:39 APTT 40 SECONDS (21-34) H 10/03/16 17:39 Sodium 138 mmol/L (132-148) 10/05/16 07:06 Potassium 4.1 mmol/L (3.6-5.2) 10/05/16 07:06 Chloride 106 mmol/L (98-107) 10/05/16 07:06 Carbon Dioxide 26 mmol/L (22-30) 10/05/16 07:06 Anion Gap 10 (10-20) 10/05/16 07:06 BUN 10 mg/dL (7-17) 10/05/16 07:06 Creatinine 0.6 MG/DL (0.7-1.2) L 10/05/16 07:06 Est GFR ( Amer) > 60 10/05/16 07:06 Est GFR (Non-Af Amer) > 60 10/05/16 07:06 Random Glucose 111 mg/dL (65-105) H 10/05/16 07:06 Hemoglobin A1c 5.9 % (4.2-6.5) 10/03/16 17:39 Calcium 8.7 mg/dl (8.6-10.4) 10/05/16 07:06 Phosphorus 3.3 mg/dL (2.5-4.5) 10/05/16 07:06 Magnesium 2.0 mg/dL (1.6-2.3) 10/05/16 07:06 Total Bilirubin 0.6 mg/dL (0.2-1.3) 10/05/16 07:06 AST 91 U/L (14-36) H D 10/05/16 07:06 ALT 35 U/L (9-52) 10/05/16 07:06 Alkaline Phosphatase 75 U/L (38-126) 10/05/16 07:06 Total Creatine Kinase 355 U/L (30-135) H 10/05/16 07:06 CK-MB (Mass) 12.7 ng/mL (0.0-3.38) H 10/05/16 07:06 Troponin I 20.2000 ng/mL (0.00-0.120) H* 10/03/16 19:46 Troponin I, Quant 20.9000 ng/mL (0.00-0.120) H* 10/05/16 07:06 Total Protein 6.2 g/dL (6.3-8.3) L 10/05/16 07:06 Albumin 3.3 g/dL (3.5-5.0) L 10/05/16 07:06 Globulin 2.8 gm/dL (2.2-3.9) 10/05/16 07:06 Albumin/Globulin Ratio 1.2 (1.0-2.1) 10/05/16 07:06 Triglycerides 98 mg/dL (0-149) D 10/04/16 06:24 Cholesterol 221 mg/dL (0-199) H 10/04/16 06:24 LDL Cholesterol Direct 182 mg/dL (0-129) H 10/04/16 06:24 HDL Cholesterol 37 mg/dL (30-70) 10/04/16 06:24 Blood Type O POSITIVE 10/03/16 17:42 Antibody Screen Negative 10/03/16 17:42 - Hospital Course Hospital Course: Pt seen and evalauted, is stable for discharge, denies any chest pain, shortness of breath s/p cardiac cath (1) STEMI (ST elevation myocardial infarction) Assessment & Plan: continue ASA/Brilinta. stable for discharge Status: Acute (2) HTN (hypertension) Assessment & Plan: blood pressure control Status: Acute (3) Hypercholesterolemia Assessment & Plan: continue statin therapy Status: Acute (4) Non-insulin dependent type 2 diabetes mellitus Assessment & Plan: EF>40%. will attempt NINA inhibitor however patient does not have severe LV dysfunction. Status: Acute Discharge Exam - Head Exam Head Exam: NORMAL INSPECTION - Eye Exam Eye Exam: EOMI, Normal appearance, PERRL Pupil Exam: NORMAL ACCOMODATION, PERRL - ENT Exam ENT Exam: Mucous Membranes Moist - Respiratory Exam Respiratory Exam: Clear to PA & Lateral, NORMAL BREATHING PATTERN - Cardiovascular Exam Cardiovascular Exam: REGULAR RHYTHM, +S1, +S2 - GI/Abdominal Exam GI & Abdominal Exam: Normal Bowel Sounds - Rectal Exam Rectal Exam: Deferred Discharge Plan - Discharge Medications Prescriptions: Aspirin [Adult Low Dose Aspirin EC] 81 mg PO QID #100 tablet. Ticagrelor [Brilinta] 90 mg PO BID #60 tab Rosuvastatin Calcium [Crestor] 10 mg PO HS #30 tab Metoprolol Succinate [Toprol XL] 25 mg PO DAILY #90 tab - Follow Up Plan Condition: CRITICAL Disposition: HOME/ ROUTINE Instructions: Myocardial Infarction (DC), Chest Pain (DC), Cholesterol and Your Health (GEN), Hypertension (DC), Hyperlipidemia (DC), Blood Thinners (DC)
== END 2016-10-05 17:00 | disposition home or self-care (01) | DRG 247 ==
LOC: C.ER 17:24 → C.9I 17:43 → C.6T 10-04 22:44
PROVIDERS: ADMIT Internal Medicine Cardiovascular Disease; ATTEND Internal Medicine
PROC: 027035Z Dilation of Coronary Artery, One Artery with Two Drug-eluting Intraluminal Devices, Percutaneous Approach (ICD-10-PCS; principal; 2016-10-03)
PROC: 4A023N7 Measurement of Cardiac Sampling and Pressure, Left Heart, Percutaneous Approach (ICD-10-PCS; 2016-10-03)
PROC: B2151ZZ Fluoroscopy of Left Heart using Low Osmolar Contrast (ICD-10-PCS; 2016-10-03)
PROC: B2111ZZ Fluoroscopy of Multiple Coronary Arteries using Low Osmolar Contrast (ICD-10-PCS; 2016-10-03)
DX: I21.19 ST elevation (STEMI) myocardial infarction involving other coronary artery of inferior wall (principal); I25.10 Atherosclerotic heart disease of native coronary artery without angina pectoris; I10 Essential (primary) hypertension; E11.9 Type 2 diabetes mellitus without complications; E78.00 Pure hypercholesterolemia, unspecified; F17.210 Nicotine dependence, cigarettes, uncomplicated; Z79.82 Long term (current) use of aspirin; Z79.84 Long term (current) use of oral hypoglycemic drugs